=== PATIENT | female | born 1965 | race Caucasian/White ===

== ENCOUNTER 2021-07-19 03:12 | Emergency (ER) | payer OTHER ==
[~2021-07-19] VITALS: Ht 180.3 cm; Wt 99.8 kg
[2021-07-19] MEDS ORDERED: ZOFRAN4 MG PO (03:56)
== END 2021-07-19 04:20 | disposition home or self-care (01) ==
LOC: ED 03:12
DX: U07.1 COVID-19 (principal)
CPT/HCPCS: 99284; A9270; C9803; U0003